=== PATIENT | male | born 1985 | race African-American/Black ===

== ENCOUNTER 2021-06-18 10:01 | Emergency (ER) | payer OTHER, SELFPAY ==
[2021-06-18] MEDS ORDERED: Tetracaine 0.5% PF 4 ML BOT ONE (10:18)
[2021-06-18] MEDS ORDERED: Neomycin-Polymyxin-Hc 7.5 ML BOT ONE (10:51)
== END 2021-06-18 10:59 | disposition home or self-care (01) ==
LOC: BURERS 10:01
DX: T15.11XA Foreign body in conjunctival sac, right eye, initial encounter (principal)
CPT/HCPCS: 65205